=== PATIENT | female | born 1980 | race Caucasian/White ===

== ENCOUNTER 2016-06-19 00:54 | Emergency (ER) | payer BC ==
[2016-06-19 01:03] VITALS: BP 130/89
--- OUTSIDE RECORDS SUMMARY | 2016-06-19 01:29 | XMS REPORT | Continuity of Care Document ---
:1980 Author Organization [facility] ([facility]) Address [address] [place] [address] Phone [phone] Care Team Providers Name Role Phone Asif Orlando Primary Care Provider [phone] Source Comments This disclosure is being made pursuant to the Care Everywhere program, applicable federal and state laws, and may not contain all informaitonavailable regarding this patient.[facility] ([facility]) Active Allergies and Adverse Reactions Not on File Current Medications Not on file Active Problems Not on file Social History Tobacco Use Types Packs/Day Years Used Date Never Assessed Plan of Care Health Maintenance Due Date Last Done Comments Hepatitis B Vaccine (1 of 3 - Primary Series) 1980 Tdap Vaccine 1992 Lipid Disorder Screening 12/02/1999 MMR Vaccine 12/02/1999 Td Vaccine 12/02/1999 Varicella Vaccine (1 of 2 - Adult - No Evidence of 12/02/1999 Immunity) Cervical Cancer Screening 12/02/2011 Influenza Vaccine: Seasonal (#1) 10/25/2015 Results from Last 3 Months Not on file
--- OUTSIDE RECORDS SUMMARY | 2016-06-19 01:29 | XMS REPORT | Continuity of Care Document ---
:1980 Author Organization [facility] [place] [address] Care Team Providers Name Role Phone Unavailable Primary Care Provider Unavailable Source Comments This disclosure is being made pursuant to the [employer] program and maynot contain all information available regarding this patient.[facility] Active Allergies and Adverse Reactions Not on File Current Medications Be aware that medications may not be up to date as of this document. Alwaysverify current medications with the patient. Not on file Active Problems Not on file Social History Tobacco Use Types Packs/Day Years Used Date Never Assessed Plan of Care Health Maintenance Due Date Last Done Comments Retired-Pertussis Vaccine Adult 2000 Retired-Tetanus Vaccine Adult 2000 Pap Smear 2002 Retired-INFLUENZA VACCINE 11/24/2014 Results from Last 3 Months Not on file
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
== END 2016-06-19 01:38 | disposition home or self-care (01) ==
LOC: ER 00:54
DX: S51.812A Laceration without foreign body of left forearm, initial encounter (principal); F31.9 Bipolar disorder, unspecified; F41.9 Anxiety disorder, unspecified; Y28.9XXA Contact with unspecified sharp object, undetermined intent, initial encounter

== ENCOUNTER 2016-06-19 09:47 | Emergency (ER) | payer BC ==
[2016-06-19 09:56] VITALS: BP 140/91
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
--- OUTSIDE RECORDS SUMMARY | 2016-06-19 11:23 | XMS REPORT | Continuity of Care Document ---
:1980 Author Organization [facility] ([facility]) Address [address] [place] [address] Phone [phone] Care Team Providers Name Role Phone Asif Orlando Primary Care Provider [phone] Source Comments This disclosure is being made pursuant to the Care Everywhere program, applicable federal and state laws, and may not contain all informaitonavailable regarding this patient.[facility] ([facility]) Active Allergies and Adverse Reactions Not on [...]
--- OUTSIDE RECORDS SUMMARY | 2016-06-19 11:23 | XMS REPORT | Continuity of Care Document ---
:1980 Author Organization [facility] [place] [address] Care Team Providers Name Role Phone Unavailable Primary Care Provider Unavailable Source Comments This disclosure is being made pursuant to the [employer] program and maynot contain all information available regarding this patient.[facility] Active Allergies and Adverse Reactions Not on [...]
== END 2016-06-19 11:22 | disposition home or self-care (01) ==
LOC: ER 09:47
DX: F32.9 Major depressive disorder, single episode, unspecified (principal)

== ENCOUNTER 2016-06-28 19:34 | Emergency (ER) | payer BC ==
[2016-06-28 20:23] LABS: Hematocrit 42.2 % (37.0-47.0); Hemoglobin 13.8 gm/dL (12.5-16.0); Mean Cell Volume 86.5 fl (78-100); Mean Corpuscular Hemoglobin 28.3 pg (27-31); Mean Corpuscular Hgb Conc 32.7 g/dl (32-36); Neutrophil # 6.9 K/mm3 (1.3-6.0); Platelet Count 260 K/mm3 (150-450); Red Blood Count 4.88 M/mm3 (4.2-5.4); Red Cell Distribution Width 13.1 % (11.5-14.0); White Blood Count 10.1 K/mm3 (4.0-10.5)
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
--- OUTSIDE RECORDS SUMMARY | 2016-06-28 20:39 | XMS REPORT | Continuity of Care Document ---
:1980 Author Organization [facility] ([facility]) Address [address] [place] [address] Phone [phone] Care Team Providers Name Role Phone Asif Orlando Primary Care Provider [phone] Source Comments This disclosure is being made pursuant to the Care Everywhere program, applicable federal and state laws, and may not contain all informaitonavailable regarding this patient.[facility] ([facility]) Active Allergies and Adverse Reactions Not on [...]
--- OUTSIDE RECORDS SUMMARY | 2016-06-28 20:39 | XMS REPORT | Continuity of Care Document ---
:1980 Author Organization [facility] [place] [address] Care Team Providers Name Role Phone Unavailable Primary Care Provider Unavailable Source Comments This disclosure is being made pursuant to the [employer] program and maynot contain all information available regarding this patient.[facility] Active Allergies and Adverse Reactions Not on [...]
[2016-06-28] MEDS ORDERED: ONDANSETRON HCL/PF 2 MG/ML VIAL ONE (20:41)
[2016-06-28 20:47] LABS: ALT 34 U/L (19-67); AST 19 U/L (0-48); Albumin * 3.1 gm/dl (3.4-5.0); Alkaline Phosphatase * 78 U/L (50-170); BUN/Creatinine Ratio 10.2 (9.0-21.6); Bilirubin, Total 0.2 mg/dL (0.0-1.1); Blood Urea Nitrogen 9 mg/dL (3-23); Ca. Corrected For Albumin 8.8 mg/dL (8.4-10.2); Calcium * 8.4 mg/dL (7.9-10.9); Carbon Dioxide 25.4 mmol/L (24-32.6); Chloride 107 mmol/L (97-106); Glucose * 170 mg/dL (70-110); Potassium 3.4 mmol/L (3.4-4.6); Salicylate Less than 2.8 mg/dL (2.8-20.0); Sodium 142 mmol/L (132-142); TSH * 1.192 uIU/mL (0.358-3.74); Total Protein 6.4 gm/dL (6.2-8.2)
[2016-06-28 21:57] LABS: Urine Bilirubin Negative (NEGATIVE); Urine Ketone Negative (NEGATIVE); Urine Nitrite Negative (NEGATIVE); Urine Protein Negative (NEGATIVE); Urine Urobilinogen Normal (NORMAL)
[2016-06-28 22:05] LABS: Urine Appearance Clear; Urine Bacteria TRACE; Urine Blood 10 /ul (NEGATIVE); Urine Color Yellow; Urine RBC 0-5 /hpf (0-5); Urine WBC 0-5 /hpf (0-5)
[2016-06-28 22:10] LABS: Cocaine Ur Negative (NEGATIVE); Urine Barbiturate Negative (NEGATIVE); Urine Opiates Negative (NEGATIVE); Urine PCP Negative (NEGATIVE); Urine THC Negative (NEGATIVE)
[2016-06-28 22:11] LABS: Urine Benzodiazepines Positive (NEGATIVE)
[2016-06-28] MEDS ORDERED: NORMAL SALINE 1,000 ML IV ONE (22:17)
[2016-06-29 08:21] LABS: Cocaine Ur Negative (NEGATIVE); Urine Barbiturate Negative (NEGATIVE); Urine Opiates Negative (NEGATIVE); Urine PCP Negative (NEGATIVE); Urine THC Negative (NEGATIVE)
[2016-06-29 08:24] LABS: Urine Benzodiazepines Positive (NEGATIVE)
--- NOTE | 2016-06-29 13:36 | PN ---
Subjective Subjective Narrative: Patient rested well through the night, feels less drowsy now, tolerated lunch well, emotionally she still feels the same, feels very low, wants to , is willing to get admitted for inpatient psychiatric treatment Objective - Review of Systems Generalized/Overall Review: Reports: Fatigue Respiratory: Denies: Cough, Shortness of Breath Cardiac: Denies: Chest Pain Abdominal: Denies: Nausea, Abdominal Pain - Vitals Vitals: Last Vital Signs Temp 36.8 C 06/29/16 06:41 Pulse 94 06/29/16 10:12 Resp 26 H 06/29/16 10:12 BP 99/58 06/29/16 10:12 Pulse Ox 93 06/29/16 10:12 - Abnormal Lab Findings Abnormal Lab Findings: Abnormal Lab Results 06/28/16 06/28/16 06/28/16 Range/Units 20:15 20:15 21:05 MPV 10.0 H (6.0-9.5) fl Neutrophils # 6.9 H (1.3-6.0) K/mm3 Plasma Sodium 143 H (130-142) mmol/L Chloride 107 H (97-106) mmol/L Random Glucose 170 H (70-110) mg/dL Albumin 3.1 L (3.4-5.0) gm/dl Urine Blood 10 H (NEGATIVE) /ul Ur Epithelial Cells >25 H (0-5) /hpf Salicylates Less than 2.8 L (2.8-20.0) mg/dL Acetaminophen Less than 0.2 L (10.0-30.0) mcg/mL U Benzodiazepines Scrn (NEGATIVE) 06/28/16 06/29/16 Range/Units 21:05 07:53 MPV (6.0-9.5) fl Neutrophils # (1.3-6.0) K/mm3 Plasma Sodium (130-142) mmol/L Chloride (97-106) mmol/L Random Glucose (70-110) mg/dL Albumin (3.4-5.0) gm/dl Urine Blood (NEGATIVE) /ul Ur Epithelial Cells (0-5) /hpf Salicylates (2.8-20.0) mg/dL Acetaminophen (10.0-30.0) mcg/mL U Benzodiazepines Scrn Positive H Positive H (NEGATIVE) - Exam Constitutional: Present: Alert, Oriented x3, Cooperative Respiratory: Present: lungs clear, normal breath sounds, no respiratory distress , no accessory muscle use Cardiovascular/Chest: Present: regular rate, rhythm, no murmur Abdomen: Present: Normal bowel sounds, soft Skin Exam: Present: normal color, warm/dry Neurologic: Present: alert, oriented x 3 Appearance: Present: appropriate appearance Eye contact: Present: cooperative, avoids eye contact Thoughts: Present: normal thought pattern Assessment/Plan Plan Narrative: continue to try to find placement - Problems/Diagnosis (1) Intentional overdose of drug in tablet form Problem: Acute (2) Depression Problem: Acute
[2016-06-29 17:22] VITALS: BP 123/86
== END 2016-06-29 17:21 | disposition short-term general hospital (02) ==
LOC: ER 19:34
DX: F32.9 Major depressive disorder, single episode, unspecified (principal); T42.4X2A Poisoning by benzodiazepines, intentional self-harm, initial encounter
CPT/HCPCS: 36415; 80053; 80178; 80307; 81001; 84443; 84703; 85025; 93005; 99284; G0480; G0481

== ENCOUNTER 2016-10-13 20:59 | Emergency (ER) | payer BC ==
[2016-10-13 21:15] VITALS: BP 117/73
--- OUTSIDE RECORDS SUMMARY | 2016-10-13 21:36 | XMS REPORT | Summary of Care ---
:1980 Author Organization [facility] Care Team Providers Name Role Phone No Physician, [place] Pt Primary Care Physician Unavailable Encounter 06/29/16 - 07/01/16 [facility] [address] [facility] [place] Grullon M.D. , [place] [address]- Discharge Disposition: Home Attending Physician: Armen Barney MD Admitting Physician: Armen Barney MD Referring Physician: No Physician, [place] Pt Vital Signs Most recent to oldest 1 2 3 [Reference Range]: Orientation Oriented to Person, Place, Time Oriented to Person, Place, Time Oriented to Person, Place, Time (06/30/16 12:58 PM) (06/30/16 10:02 AM) (06/29/16 8:35 PM) Sleep Quality Sleeping quielty with easy respirations Sleeping quielty with easy respirations (07/01/16 5:38 AM) (06/30/16 2:39 AM) Sleep, Number of Hrs 8 4 (07/01/16 5:38 AM) (06/30/16 2:39 AM) Sleep Comment N/A (06/30/16 2:39 AM) Respiratory Rate 19 brpm 16 brpm 20 brpm [12-30 brpm] (07/01/16 12:19 PM) (07/01/16 6:57 AM) (06/30/16 7:02 PM) Blood Pressure 93/57mm hg 122/87mm hg 117/81mm hg [(reference range (07/01/16 12:19 PM) (07/01/16 6:57 AM) (06/30/16 7:02 PM) unavailable)/61-99 mm hg] Temperature F 97.9 degF 98.4 degF 97.7 degF [97.7-99.9 degF] (07/01/16 12:19 PM) (07/01/16 6:57 AM) (06/30/16 7:02 PM) Weight 89.545 kg (06/29/16 8:35 PM) Problem List No data available for this section Allergies, Adverse Reactions, Alerts Substance Reaction Severity Status cephalexin Hives Active erythromycin Hives Active Lactose Stomachache Active penicillins Hives Active sulfonamides Hives Active Medications ALPRAZolam 0.5 mg oral tablet 1 mg=2 Tab, PO, BID (Twice Daily), PRN PRN Anxiety Start Date: 07/01/16 Status: Orderedbenztropine 0.5 mg oral tablet 0.5 mg=1 Tab, PO, HS (At Bedtime) Start Date: 07/01/16 Status: OrderedCogentin 0.5 mg, PO, HS (At Bedtime) Start Date: 06/29/16 Stop Date: 07/01/16 Status: DiscontinuedLatuda 120 mg, PO, HS (At Bedtime) Start Date: 06/29/16 Stop Date: 07/01/16 Status: Discontinuedlithium 300 mg oral tablet 600 mg=2 Tab, PO, HS (At Bedtime) Start Date: 07/01/16 Status: Orderedlithium 300 mg oral tablet 300 mg=1 Tab, PO, Daily (Once Daily) Start Date: 07/01/16 Status: Orderedlithium carbonate 600 mg, PO, HS (At Bedtime) Start Date: 06/29/16 Stop Date: 07/01/16 Status: Discontinuedlithium carbonate 300 mg, PO, Daily (Once Daily), in am Start Date: 06/29/16 Stop Date: 07/01/16 Status: DiscontinuedLunesta 3 mg, PO, HS (At Bedtime) Start Date: 06/29/16 Status: Orderedlurasidone 40 mg oral tablet 120 mg=3 Tab, PO, HS (At Bedtime) Start Date: 07/01/16 Status: Orderedmelatonin 10 mg, PO, HS (At Bedtime) Start Date: 06/29/16 Status: OrderedXanax 1 mg, PO, BID (Twice Daily), PRN PRN as needed for anxiety Start Date: 4/6/17 Stop Date: 07/01/16 Status: Discontinued Results TDM Most recent to oldest [Reference Range]: 1 [place]ck[place] Level [0.6-1.2 mmol/L] 0.6 mmol/L (07/01/16 7:23 AM) Immunizations No data available for this section Procedures Procedure Date Related Diagnosis Body Site Arthroscopy of knee 03/06/14 Tonsillectomy1 1981 Adenoidectomy2 Breast reduction, bilateral3 119 or 21 years [id number] or 21 years [id number] 10 years ago Social History Social History Type Response Alcohol Current, 1-2 times per week, 4 drinks/episode average. 5.00 drinks/episode maximum.1 Substance Abuse Never Smoking Status Former smoker2 14 or 5 drinks once a week, at least.2quit 7 or 8 years ago. Assessment and Plan No data available for this section
--- OUTSIDE RECORDS SUMMARY | 2016-10-13 21:36 | XMS REPORT | Continuity of Care Document ---
:1980 Author Organization [facility] [place] [address] Care Team Providers Name Role Phone Unavailable Primary Care Provider Unavailable Source Comments This disclosure is being made pursuant to the makr program and maynot contain all information available regarding this patient.[facility] Active Allergies and Adverse Reactions Not on File Current Medications Be aware that medications may not be up to date as of this document. Alwaysverify current medications with the patient. Not on file Active Problems Not on file Social History Tobacco Use Types Packs/Day Years Used Date Never Assessed Plan of Care Health Maintenance Due Date Last Done Comments Tetanus/Pertussis (1 - Tdap) 2000 Pap Smear 2002 Influenza Immunization (#1) 2015 Results from Last 3 Months Not on file
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
== END 2016-10-13 22:00 | disposition home or self-care (01) ==
LOC: ER 20:59
DX: R45.89 Other symptoms and signs involving emotional state (principal); F31.9 Bipolar disorder, unspecified; F41.9 Anxiety disorder, unspecified; Z87.891 Personal history of nicotine dependence

== ENCOUNTER 2016-10-28 17:46 | Observation (INO) | payer BC ==
[~2016-10-28 17:46] MED LIST: BUPIVACAINE HCL/EPINEPHRINE 50 ML VIAL IJ ONE; MUPIROCIN 22 APPL TUBE TP ONE; RINGER'S SOLUTION,LACTATED 1,000 ML IV ONE
--- OUTSIDE RECORDS SUMMARY | 2016-10-28 18:26 | XMS REPORT | Clinical Summary ---
:1980 Author Organization [facility] [place] [address] Care Team Providers Name Role Phone Unavailable Primary Care Provider Unavailable Source Comments This disclosure is being made pursuant to the [employer] program and maynot contain all information available regarding this patient.[facility] Allergies Not on File Current Medications Be aware that medications may not be up to date as of this document. Alwaysverify current medications with the patient. Not on file Active Problems Not on file Social History Tobacco Use Types Packs/Day Years Used Date Never Assessed Sex Assigned at Date Recorded Not on file Last Filed Vital Signs Not on file Plan of Treatment Health Maintenance Due Date Last Done Comments Tetanus/Pertussis (1 - Tdap) 2000 Pap Smear 2002 INFLUENZA IMMUNIZATION (#1) 2015 Results Not on filefrom Last 3 Months
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
[2016-10-28 18:44] LABS: Urine Appearance Slightly Cloudy; Urine Bilirubin Negative (NEGATIVE); Urine Color Yellow; Urine Ketone Negative (NEGATIVE)
[2016-10-28 18:45] LABS: Urine Blood 250 /ul (NEGATIVE); Urine Nitrite Negative (NEGATIVE); Urine Protein Negative (NEGATIVE); Urine Urobilinogen Normal (NORMAL); Urine WBC None Seen /hpf (0-5)
[2016-10-28 18:46] LABS: Hemoglobin 14.7 gm/dL (12.5-16.0); Mean Cell Volume 85.2 fl (78-100); Mean Corpuscular Hemoglobin 27.8 pg (27-31); Mean Corpuscular Hgb Conc 32.7 g/dl (32-36); Mean Platelet Volume 9.8 fl (6.0-9.5); Neutrophil # 8.6 K/mm3 (1.3-6.0); Neutrophil % 71.3 % (42-75.0); Platelet Count 303 K/mm3 (150-450); Red Blood Count 5.28 M/mm3 (4.2-5.4); Red Cell Distribution Width 13.3 % (11.5-14.0); White Blood Count 12.1 K/mm3 (4.0-10.5)
[2016-10-28 18:46] LABS: Urine Bacteria None Seen; Urine RBC >50 /hpf (0-5)
[2016-10-28 19:00] LABS: Albumin * 3.5 gm/dl (3.4-5.0); Anion Gap 14.8 mmol/L (6.8-13.8); BUN/Creatinine Ratio 8.4 (9.0-21.6); Bilirubin, Total 0.4 mg/dL (0.0-1.1); Ca. Corrected For Albumin 9.1 mg/dL (8.4-10.2); Carbon Dioxide 23.8 mmol/L (24-32.6); Potassium 3.6 mmol/L (3.4-4.6); Total Protein 7.3 gm/dL (6.2-8.2)
[2016-10-28] MEDS ORDERED: DIATRIZOATE MEGLUMINE, SODIUM 30 ML BTL PO ONE (19:30)
[2016-10-28] MEDS ORDERED: DIATRIZOATE MEGLUMINE, SODIUM 30 ML BTL ONE (19:31)
--- OUTSIDE RECORDS SUMMARY | 2016-10-28 23:35 | XMS REPORT | Clinical Summary ---
:1980 Author Organization [employer] [facility] [place] [address] Care Team Providers Name Role Phone Unavailable Primary Care Provider Unavailable Source Comments This disclosure is being made pursuant to the Mgv program and maynot contain all information available regarding this patient.[facility] Allergies Not on File Current Medications Be [...]
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
[2016-10-29] MEDS: LEVOFLOXACIN/D5W 750 MG/150 ML BAG IV SCH ×2 (00:20→23:39)
[2016-10-29] MEDS ORDERED: ONDANSETRON HCL/PF 2 MG/ML VIAL IV PRN (01:43)
[2016-10-29] MEDS ORDERED: MORPHINE SULFATE 2 MG/ML DISP.SYRIN IV PRN (01:43)
--- NOTE | 2016-10-29 01:53 | OR ---
Operative Report - Dictated Report Narrative: Date of operation 10/29/2016 Preoperative diagnosis: Acute appendicitis Postoperative diagnosis: Early acute appendicitis (pathology pending) Operation: Laparoscopic appendectomy Surgeon: TIFFANI Naranjo MD Anesthesia: GenYou Santiago CRNA Indications for procedure: The patient is a 35-year-old female who presented to the emergency room with a 2 day history of abdominal pain which had migrated to the right lower quadrant and was aggravated by coughing. She was found to have an elevated white blood cell count and CT scan evidence suggesting early acute appendicitis Findings: Early acute appendicitis Narrative of procedure: The patient was identified preoperatively, and prior to the administration of anesthetic a multidisciplinary timeout was observed. The patient was placed supine, SCDs were applied, and 750 mg of IV Levaquin administered. General endotracheal anesthetic was administered. The patient's abdomen was prepped with Betadine solution, and a generous operating field outlined with 4 sterile towels. The remainder the patient was covered with a sterile disposable drape. A transverse infraumbilical skin incision was made, and dissection was carried along the umbilical stalk until the fascia of the linea alba was encountered. This was incised. The peritoneum was elevated and incised to allow entry into the abdomen under direct vision. A Hussan cannula was placed and the abdomen insufflated with CO2. The laparoscopic camera was introduced and the abdomen briefly explored. The liver appeared grossly normal there were some adhesions from the dome of the left lobe of the liver to the anterior abdominal wall. Those portions of the omentum and colon visualized appeared normal. The appendix was not immediately visible. Next under direct vision, 2 additional working ports were inserted through separate skin incisions, one in the suprapubic area one in the left lower quadrant. The apex of the cecum was retracted medially exposing a very long appendix. The lateral peritoneal attachments of the appendix were divided for mobilization which allowed elevation of the entire appendix. The base of the appendix and mesoappendix were incorporated and divided with a single application of a ELVER laparoscopic stapler. The stump of the appendix was seen to be gas and liquid tight. The mesoappendix was hemostatic. The right lower quadrant was suctioned clean. The appendix was placed in an Endobag and parked in the right lower quadrant. The small working ports were withdrawn. The Endobag was withdrawn in conjunction with the umbilical cannula. The pneumoperitoneum was allowed to escape, and after receiving a correct sponge needle and instrument count attention was turned to closing the abdomen. The fascia and peritoneum at the umbilicus were approximated with interrupted sutures of #1 Vicryl. Skin incisions were approximated with interrupted vertical mattress sutures of 4-0 nylon. The operative sites were washed and dried. Dressings of Bactroban ointment and large Band-Aids were applied to the small port sites. The umbilical incision was dressed with Bactroban ointment, 2 x 2, large Band-Aid, and Medipore tape. The operative procedure was terminated at this point. There was no measurable blood loss. 0.5% Marcaine with epinephrine was used for local anesthetic infiltration area the appendix was submitted to pathology. The patient tolerated the anesthetic and procedure well without complication and was transferred to the recovery room awake, extubated, and in stable condition. Reviewed and electronically signed
--- OUTSIDE RECORDS SUMMARY | 2016-10-29 02:03 | XMS REPORT | Clinical Summary ---
:1980 Author Organization [facility] Address [place] [address] Care Team Providers Name Role Phone Unavailable Primary Care Provider Unavailable Source Comments This disclosure is being made pursuant to the [employer] program and maynot contain all information available regarding this patient.[facility] Allergies Not on File Current Medications Be [...]
[2016-10-29] MEDS: oxyCODONE HCL/ACETAMINOPHEN 1 TAB TABLET PO PRN ×3 (02:21→16:53)
[2016-10-29] MEDS: PANTOPRAZOLE SODIUM 40 MG in NORMAL SALINE 100 ML IV SCH ×2 (02:57→20:44)
[2016-10-29] MEDS: ONDANSETRON HCL/PF 2 MG/ML VIAL IV PRN (11:44)
[2016-10-29] MEDS: RINGER'S SOLUTION,LACTATED 1,000 ML IV PRN (16:54)
--- NOTE | 2016-10-29 18:09 | PN ---
Dictated Progress Note - Date and Time Seen: Date: 10/29/16 Time: 18:06 - Progress Note Narrative: Vital Signs - Last Taken Temp 36.6 C 10/29/16 14:50 Pulse 79 10/29/16 14:50 Resp 18 10/29/16 14:50 BP 104/60 10/29/16 14:50 Pulse Ox 92 10/29/16 14:50 2nd visit VS normal. Has had nausea/vomited early AM but did tolerate some po after Zofran. Dressings dry. Has been to BR and voided, and she is up in chair. Rates pain 09/02---using Percocet. Will encourage OOB again yet tonight. Tentative home in AM (one MN).
[2016-10-29] MEDS ORDERED: METOCLOPRAMIDE HCL 5 MG/ML VIAL IV PRN (18:22)
[2016-10-30] MEDS: ONDANSETRON HCL/PF 2 MG/ML VIAL IV PRN ×2 (02:09→09:13)
[2016-10-30] MEDS: oxyCODONE HCL/ACETAMINOPHEN 1 TAB TABLET PO PRN ×2 (02:09→09:13)
[2016-10-30] MEDS: RINGER'S SOLUTION,LACTATED 1,000 ML IV PRN (02:50)
[2016-10-30 15:25] VITALS: BP 112/67
--- NOTE | 2016-10-30 17:51 | DS ---
(1) Acute appendicitis Problem: Acute Description of Stay: Uneventful laparoscopic appendectomy (pathology pending). VS remained normal. Had initial nausea but tolerated advanced diet. OOB independently. Dressings dry. Pain tolerable on po Percocet. Procedures Performed: see notes below - laparoscopic appendectomy Discharge Disposition: Home self care Disposition: Home self-care Condition: Good Discharge Activity: Activity as tolerated, No Lifting Discharge Diet: General/regular food Referrals: Carolina Clemens MD [Primary Care Provider] - Problem Oriented Discharge Instructions to Patient/Family: Laparoscopic Appendectomy, Adult, Care After, [id number] Additional Patient Instructions (free text): to call [phone] on Sunday to make f/u appointment in 7-10 days Prescriptions (Any new or edited meds): oxyCODONE HCL/ACETAMINOPHEN [Percocet 5 MG/325 MG] 2 tab PO Q4H PRN #30 tablet PRN Reason: Moderate Pain Ondansetron HCl/Pf [Zofran] 4 mg PO Q6H PRN #4 tab PRN Reason: Nausea And Vomiting Complete Home Medications List: Complete Home Medication List: ALPRAZolam [Xanax] 1 mg PO BID PRN 03/05/15 Benztropine Mesylate [Cogentin] 0.5 mg PO HS PRN 08/31/15 Eszopiclone [Lunesta] 3 mg PO HS 08/31/15 Lurasidone HCl [Latuda] 120 mg PO HS 08/31/15 [place] Carbonate 300 mg PO DAILY 10/13/16 Melatonin 10 mg PO HS 10/13/16 [place] Oil/[place]-3 Fatty Acids [Fish Oil] 2,000 mg PO DAILY 10/13/16 lamoTRIgine [Lamictal] 150 mg PO HS 10/13/16 [place] Carbonate 600 mg PO HS 10/29/16 Ondansetron HCl/Pf [Zofran] 4 mg PO Q6H PRN #4 tab 10/29/16 oxyCODONE HCL/ACETAMINOPHEN [Percocet 5 MG/325 MG] 2 tab PO Q4H PRN #30 tablet 10/29/16
== END 2016-10-30 19:00 | disposition home or self-care (01) ==
LOC: ER 17:46 → AMB 23:15 → MS 10-29 01:59
PROVIDERS: ADMIT Surgery; ATTEND Surgery
DX: K35.89 Other acute appendicitis (principal)
CPT/HCPCS: 36415; 44970; 74177; 80053; 81001; 82150; 83690; 85025; 88304; 96365; 96366; 96375; 96376; 99284; G0378; J2405

== ENCOUNTER 2017-02-11 18:21 | Emergency (ER) | payer BC ==
[2017-02-11 19:00] LABS: Hematocrit 45.5 % (37.0-47.0); Hemoglobin 14.7 gm/dL (12.5-16.0); Mean Cell Volume 86.2 fl (78-100); Mean Corpuscular Hemoglobin 27.8 pg (27-31); Mean Corpuscular Hgb Conc 32.3 g/dl (32-36); Mean Platelet Volume 9.4 fl (6.0-9.5); Neutrophil # 7.6 K/mm3 (1.3-6.0); Neutrophil % 70.8 % (42-75.0); Platelet Count 288 K/mm3 (150-450); Red Blood Count 5.28 M/mm3 (4.2-5.4); Red Cell Distribution Width 13.9 % (11.5-14.0); White Blood Count 10.7 K/mm3 (4.0-10.5)
[2017-02-11] MEDS ORDERED: DIPHTH,PERTUSS(ACELL),TET VAC 0.5 ML VIAL IM ONE ×2 (19:04→19:06)
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
[2017-02-11 19:09] LABS: Urine Appearance Clear; Urine Bacteria None Seen; Urine Bilirubin Negative (NEGATIVE); Urine Blood Negative /ul (NEGATIVE); Urine Color Yellow; Urine Ketone Negative (NEGATIVE); Urine Nitrite Negative (NEGATIVE); Urine Protein Negative (NEGATIVE); Urine RBC None Seen /hpf (0-5); Urine Urobilinogen Normal (NORMAL); Urine WBC None Seen /hpf (0-5)
[2017-02-11 19:13] LABS: ALT 25 U/L (19-67); AST 14 U/L (0-48); Albumin * 3.5 gm/dl (3.4-5.0); Alkaline Phosphatase * 91 U/L (50-170); Anion Gap 13.2 mmol/L (6.8-13.8); BUN/Creatinine Ratio 11.7 (9.0-21.6); Bilirubin, Total 0.3 mg/dL (0.0-1.1); Blood Urea Nitrogen 12 mg/dL (3-23); Ca. Corrected For Albumin 9.1 mg/dL (8.4-10.2); Carbon Dioxide 27.4 mmol/L (24-32.6); Chloride 105 mmol/L (97-106); Glucose * 113 mg/dL (70-110); Potassium 3.6 mmol/L (3.4-4.6); Salicylate Less than 2.8 mg/dL (2.8-20.0); Sodium 142 mmol/L (132-142); Total Protein 7.2 gm/dL (6.2-8.2)
[2017-02-11 19:14] LABS: Cocaine Ur Negative (NEGATIVE); Urine Barbiturate Negative (NEGATIVE); Urine Opiates Negative (NEGATIVE); Urine PCP Negative (NEGATIVE); Urine THC Negative (NEGATIVE)
[2017-02-11 19:15] LABS: Urine Benzodiazepines Positive (NEGATIVE)
[2017-02-12 14:04] VITALS: BP 127/81
== END 2017-02-12 13:45 | disposition home or self-care (01) ==
LOC: ER 18:21
DX: F31.9 Bipolar disorder, unspecified (principal); S51.812A Laceration without foreign body of left forearm, initial encounter; S51.811A Laceration without foreign body of right forearm, initial encounter; X78.9XXA Intentional self-harm by unspecified sharp object, initial encounter; Z91.14 Patient's other noncompliance with medication regimen
CPT/HCPCS: 36415; 80053; 80307; 81001; 84443; 84703; 85025; 90471; 90715; 99284; G0480; G0481